=== PATIENT | female | born 2000 | race African-American/Black ===

== ENCOUNTER 2021-02-14 12:53 | Emergency (ER) | payer MEDICAID ==
[~2021-02-14] VITALS: Ht 165.1 cm; Wt 85.0 kg
[2021-02-14] MEDS ORDERED: METOCLOPRAMIDE HCL 10MG/2ML VIAL IM STA (14:53)
[2021-02-14] MEDS ORDERED: KETOROLAC 30MG/ML VIAL IM STA (14:53)
[2021-02-14 15:45] VITALS: BP 117/75
[2021-02-14 16:09] LABS: CLARITY URINE CLOUDY (CLEAR); COLOR URINE DARK YELLOW (YELLOW); KETONES URINE TRACE (NEGATIVE); LEUKOCYTE ESTERASE URINE NEGATIVE (NEGATIVE); NITRITE URINE NEGATIVE (NEGATIVE); OCCULT BLOOD URINE NEGATIVE (NEGATIVE); PH URINE 5.5 (4.5-8.0); PROTEIN URINE TRACE (NEGATIVE); SPECIFIC GRAVITY URINE 1.029 (1.005-1.030)
[2021-02-14] MEDS ORDERED: NAPR-681 PO (16:16)
[2021-02-14] MEDS ORDERED: MECL-159 PO (16:16)
== END 2021-02-14 16:42 | disposition home or self-care (01) ==
LOC: ER 12:53
DX: G44.89 Other headache syndrome (principal); R53.1 Weakness
CPT/HCPCS: 81003; 81025; 96372; 99284; J1885; J2765

== ENCOUNTER 2023-02-25 13:43 | Emergency (ER) | payer MEDICAID, OTHER ==
[~2023-02-25] VITALS: Ht 165.1 cm; Wt 83.4 kg
[~2023-02-25 13:43] MED LIST: MECL-159 PO; NAPR-681 PO
[2023-02-25 14:07] VITALS: BP 128/93
[2023-02-25 17:45] LABS: CLARITY URINE CLOUDY (CLEAR); COLOR URINE YELLOW (YELLOW); KETONES URINE TRACE (NEGATIVE); LEUKOCYTE ESTERASE URINE NEGATIVE (NEGATIVE); NITRITE URINE NEGATIVE (NEGATIVE); OCCULT BLOOD URINE 2+ (NEGATIVE); PH URINE 5.5 (4.5-8.0); PROTEIN URINE TRACE (NEGATIVE)
[2023-02-25 18:01] LABS: BASOPHILS % 0.3 % (0.0-2.0); EOSINOPHILS % 1.2 % (0.0-5.0); HEMATOCRIT. 39.4 % (36.0-48.0); HEMOGLOBIN. 13.3 g/dL (12.0-16.0); LYMPHOCYTES % 11.2 % (20.0-50.0); MEAN CORPUSCULAR HEMOGLOBIN 27.8 pg (28.0-32.0); MEAN CORPUSCULAR VOLUME 82.1 fL (81.0-99.0); MEAN PLATELET VOLUME 8.9 fl (7.4-10.4); MONOCYTES % 5.3 % (2.0-8.0); PLATELET 360 x1000/uL (130-400); RED BLOOD CELL COUNT 4.81 mill/uL (4.2-5.4); RED CELL DISTRIBUTION WIDTH 13.2 % (11.6-14.6)
[2023-02-25 18:07] LABS: CHLORIDE 106 mEq/L (98-107)
[2023-02-25] MEDS ORDERED: MAGNESIUM/ALUMINUM HYDROXIDE/SIMETHICONE 30ML UDC PO ONE (18:15)
[2023-02-25] MEDS ORDERED: ONDANSETRON 4MG ODT PO ONE (18:15)
[2023-02-25] MEDS ORDERED: FAMOTIDINE 20MG TABLET PO ONE (18:15)
== END 2023-02-25 20:29 | disposition home or self-care (01) ==
LOC: ER 15:40
DX: R11.2 Nausea with vomiting, unspecified (principal); F12.10 Cannabis abuse, uncomplicated
CPT/HCPCS: 36415; 76705; 80053; 81003; 81025; 83690; 85025; 99284; Q0162

== ENCOUNTER 2023-05-16 14:43 | Emergency (ER) | payer MEDICAID ==
[~2023-05-16] VITALS: Ht 162.6 cm; Wt 93.0 kg
[2023-05-16 15:05] VITALS: BP 126/85; PULSE 79; RESP 18; TEMP 98.7; O2SAT 99
[2023-05-16 16:08] LABS: BASOPHILS % 0.4 % (0.0-2.0); EOSINOPHILS % 3.5 % (0.0-5.0); HEMATOCRIT. 43.2 % (36.0-48.0); HEMOGLOBIN. 14.2 g/dL (12.0-16.0); LYMPHOCYTES % 21.9 % (20.0-50.0); MEAN CORPUSCULAR HGB CONC 32.8 g/dL (31.0-37.0); MEAN CORPUSCULAR VOLUME 82.4 fL (81.0-99.0); MEAN PLATELET VOLUME 8.9 fl (7.4-10.4); MONOCYTES % 6.5 % (2.0-8.0); NEUTROPHILS % 67.7 % (40.0-76.0); PLATELET 325 x1000/uL (130-400); RED BLOOD CELL COUNT 5.24 mill/uL (4.2-5.4); RED CELL DISTRIBUTION WIDTH 13.6 % (11.6-14.6); WHITE BLOOD COUNT 11.3 x1000/uL (4.5-11.0)
[2023-05-16 16:16] LABS: CHLORIDE 107 mEq/L (98-107); INDEX HEMOLYSI 1 (1-3); INDEX ICTERIC 1 (1-4); INDEX LIPEMIC 1 (1-3); POTASSIUM 3.8 mEq/L (3.5-5.1); SODIUM 136 mEq/L (136-145)
[2023-05-16 16:27] LABS: ALANINE AMINOTRANSFERASE 25 IU/L (13-61); ALBUMIN 4.2 g/dL (3.4-5.0); ASPARTATE AMINOTRANSFERASE 19 IU/L (15-37); BILIRUBIN TOTAL 0.6 mg/dL (0.1-1.0); CALCIUM 8.9 mg/dL (8.5-10.1); CARBON DIOXIDE 25 mEq/L (21-32); CREATININE 0.9 mg/dL (0.6-1.3); GLUCOSE 92 mg/dL (70-105); PROTEIN TOTAL 8.6 g/dL (6.0-8.3); UREA NITROGEN BLOOD 11 mg/dL (7-21)
[2023-05-16 16:28] LABS: TROPONIN I HIGH SENSITIVITY < 4 ng/L (<54)
== END 2023-05-16 19:26 | disposition left against medical advice (07) ==
LOC: ER 14:43
DX: Z53.21 Procedure and treatment not carried out due to patient leaving prior to being seen by health care provider (principal)
CPT/HCPCS: 36415; 71045; 80053; 84484; 85025; 93005; 99285

== ENCOUNTER 2023-08-14 14:03 | Emergency (ER) | payer MEDICAID ==
[~2023-08-14] VITALS: Ht 162.6 cm; Wt 92.0 kg
[~2023-08-14 14:03] MED LIST changes: -MECL-159 PO; +MECL-299 PO
[2023-08-14 14:04] VITALS: O2SAT 100
[2023-08-14] MEDS ORDERED: NAPR-1129 MT (15:19)
[2023-08-14 16:26] VITALS: BP 124/83; PULSE 84; RESP 19; TEMP 98.4
== END 2023-08-14 16:28 | disposition home or self-care (01) ==
LOC: ER 14:03
DX: S89.91XA Unspecified injury of right lower leg, initial encounter (principal); F12.10 Cannabis abuse, uncomplicated; X58.XXXA Exposure to other specified factors, initial encounter; Y93.89 Activity, other specified; Y92.89 Other specified places as the place of occurrence of the external cause; Y99.8 Other external cause status
CPT/HCPCS: 73560; 99283

== ENCOUNTER 2025-03-30 06:31 | Emergency (ER) | payer SELFPAY ==
[~2025-03-30] VITALS: Ht 167.6 cm; Wt 88.0 kg
[~2025-03-30 06:31] MED LIST changes: +NAPR-1129 MT
[2025-03-30 06:50] VITALS: O2SAT 100
[2025-03-30 07:17] LABS: BASOPHILS % 0.7 % (0.0-2.0); EOSINOPHILS % 6.3 % (0.0-5.0); HEMATOCRIT. 42.4 % (36.0-48.0); HEMOGLOBIN. 13.9 g/dL (12.0-16.0); LYMPHOCYTES % 26.8 % (20.0-50.0); MEAN PLATELET VOLUME 9.1 fl (7.4-10.4); MONOCYTES % 9.2 % (2.0-8.0); NEUTROPHILS % 57.0 % (40.0-76.0); PLATELET 268 x1000/uL (130-400); RED BLOOD CELL COUNT 5.19 mill/uL (4.2-5.4); RED CELL DISTRIBUTION WIDTH 13.6 % (11.6-14.6)
[2025-03-30 07:30] LABS: CREATININE 1.0 mg/dL (0.6-1.0)
[2025-03-30 07:31] LABS: UREA NITROGEN BLOOD 10 mg/dL (9-23)
[2025-03-30 07:35] LABS: TROPONIN I HIGH SENSITIVITY < 4 ng/L (3.0-34)
[2025-03-30 07:35] LABS: CLARITY URINE CLEAR (CLEAR); COLOR URINE YELLOW (YELLOW); GLUCOSE URINE NEGATIVE (NEGATIVE); KETONES URINE NEGATIVE (NEGATIVE); LEUKOCYTE ESTERASE URINE NEGATIVE (NEGATIVE); NITRITE URINE NEGATIVE (NEGATIVE); OCCULT BLOOD URINE NEGATIVE (NEGATIVE); PH URINE 5.5 (4.5-8.0); PROTEIN URINE NEGATIVE (NEGATIVE); SPECIFIC GRAVITY URINE 1.019 (1.005-1.030); UROBILINOGEN URINE 1.0 E.U./dL (0.2-1.0)
[2025-03-30] MEDS: ACETAMINOPHEN 325MG TABLET PO ONE (07:58)
[2025-03-30] MEDS ORDERED: TOPUD PO (08:04)
[2025-03-30 08:12] VITALS: BP 113/57; PULSE 62; RESP 18; TEMP 36.8; O2SAT 100
== END 2025-03-30 08:13 | disposition home or self-care (01) ==
LOC: ER 06:31
DX: R07.89 Other chest pain (principal); F12.90 Cannabis use, unspecified, uncomplicated
CPT/HCPCS: 36415; 71045; 80048; 81003; 81025; 84484; 85025; 93005; 99285